=== PATIENT | male | born 1965 | race Caucasian/White ===

== ENCOUNTER 2016-07-08 14:23 | Inpatient (IN) | payer OTHER ==
[~2016-07-08] VITALS: Ht 190.5 cm; Wt 75.8 kg
[~2016-07-08 14:23] MED LIST: ALBU2SYR PO; ASPI-496 PO; DOXY100T9 PO; IBUP200C8 PO; IPRA3AMP NPPB; NO MEDS REPORTED; PHEN100C PO; PRED10TA PO
[2016-07-08] MEDS ORDERED: SODIUM CHLORIDE 0.9% 1,000 ML IV ONE (14:36)
[2016-07-08] MEDS ORDERED: ALBUTEROL/IPRATROPIUM 2.5MG/0.5MG, 3 ML ONE (14:39)
[2016-07-08] MEDS ORDERED: ALBUTEROL/IPRATROPIUM 2.5MG/0.5MG, 3 ML NPPB SCH (15:00)
[2016-07-08] MEDS ORDERED: SODIUM CHLORIDE FLUSH 10ML SYR IVF ONE (15:00)
[2016-07-08] MEDS ORDERED: SODIUM CHLORIDE 0.9% 1,000ML IVBOLUS ONE (15:00)
[2016-07-08] MEDS ORDERED: LORazepam 2 MG/ML, 1ML IVPush ONE ×3 (15:00→20:00)
[2016-07-08] MEDS ORDERED: methylPREDNISolone SOD SUCC 125 MG/2 ML IVP ONE (15:00)
[2016-07-08 15:17] LABS: BLOOD UREA NITROGEN 8 mg/dL (7-18)
[2016-07-08 15:18] LABS: IS PT STATUS REG ER OR PRE ER? YES
[2016-07-08] MEDS ORDERED: methylPREDNISolone SOD SUCC 125 MG/2 ML ONE (15:45)
[2016-07-08] MEDS ORDERED: LORazepam 2 MG/ML, 1ML ONE ×3 (15:46→19:37)
[2016-07-08] MEDS ORDERED: PHENYTOIN SODIUM 1,000 MG in SODIUM CHLORIDE 0.9% 100 ML IVPB ONE (16:00)
[2016-07-08 16:25] LABS: DIFF TOTAL CELLS COUNTED 100 CELL DIFF
[2016-07-08] MEDS ORDERED: FILTER 0.22 MICRON IV ONE (16:30)
[2016-07-08 16:37] LABS: VERIFY COUNTS? YES
[2016-07-08 16:40] LABS: LARGE PLATELETS 1+
[2016-07-08] MEDS ORDERED: DIAZEPAM 5 MG/ML, 2ML ONE (18:22)
[2016-07-08] MEDS ORDERED: DIAZEPAM 5 MG/ML, 2ML IV ONE (18:30)
[2016-07-08] MEDS ORDERED: SODIUM CHLORIDE FLUSH 10ML SYR IVF PRN (19:00)
[2016-07-08] MEDS ORDERED: POTASSIUM CHLORIDE 20 MEQ, MAGNESIUM SULFATE 1 GM, FOLIC ACID 1 MG, THIAMINE 100 MG, MV... IV SCH (19:30)
[2016-07-08] MEDS ORDERED: LORazepam 1MG TABLET PO PRN ×8 (19:30→20:30)
[2016-07-08] MEDS ORDERED: LORazepam 2 MG/ML, 1ML IV PRN ×10 (19:30→20:30)
[2016-07-08] MEDS ORDERED: ONDANSETRON ODT 4 MG PO PRN (19:30)
[2016-07-08] MEDS ORDERED: ENOXAPARIN 40 MG/0.4 ML SQ SCH (19:30)
[2016-07-08] MEDS ORDERED: POLYETHYLENE GLYCOL 17 GM PACKET PO PRN (19:30)
[2016-07-08] MEDS ORDERED: LABETALOL 5MG/ML, 20ML IV PRN (19:30)
[2016-07-08] MEDS ORDERED: LORazepam 0.5MG TABLET PO PRN ×2 (19:30→20:30)
[2016-07-08] MEDS ORDERED: GUAIFENESIN/DM 200-20MG, 10ML UDC PO PRN (19:30)
[2016-07-08] MEDS ORDERED: ONDANSETRON 2MG/ML, 2ML IVP PRN (19:30)
[2016-07-08] MEDS ORDERED: LEVETIRACETAM 1,000 MG in SODIUM CHLORIDE 0.9% 100 ML IV ONE (20:30)
[2016-07-08 20:38] LABS: ASPARTATE AMINO TRANSFERASE 88 U/L (15-37); BLOOD UREA NITROGEN 6 mg/dL (7-18)
[2016-07-08] MEDS: SODIUM CHLORIDE 0.9% 1,000 ML IV SCH (20:54)
[2016-07-08] MEDS ORDERED: PHENYTOIN SODIUM 50 MG/ML, 2ML IVPush SCH (21:00)
[2016-07-08] MEDS ORDERED: LEVETIRACETAM 100 MG/ML, 5ML IV SCH ×2 (21:00)
[2016-07-08] MEDS ORDERED: DOXYCYCLINE 100MG TABLET PO ONE (21:00)
[2016-07-08] MEDS: POTASSIUM CHLORIDE 20 MEQ, MAGNESIUM SULFATE 1 GM, FOLIC ACID 1 MG, THIAMINE 100 MG, MV... IV SCH (21:58)
[2016-07-08] MEDS: FAMOTIDINE 20 MG/2 ML IV SCH (21:59)
[2016-07-09] MEDS ORDERED: NICOTINE 14MG/24 HR PATCH.TD24 TD ONE (03:00)
[2016-07-09 04:00] VITALS: BP 118/69
[2016-07-09] MEDS ORDERED: ALBUTEROL/IPRATROPIUM 2.5MG/0.5MG, 3 ML NPPB PRN (04:00)
[2016-07-09 05:01] LABS: ASPARTATE AMINO TRANSFERASE 67 U/L (15-37); BLOOD UREA NITROGEN 12 mg/dL (7-18)
[2016-07-09] MEDS: SODIUM CHLORIDE 0.9% 1,000 ML IV SCH ×2 (07:57→22:53)
[2016-07-09] MEDS: LEVETIRACETAM 750 MG in SODIUM CHLORIDE 0.9% 100 ML IV SCH ×2 (08:53→22:53)
[2016-07-09] MEDS: ASPIRIN 81 MG TABLET EC PO SCH (08:59)
[2016-07-09] MEDS: FAMOTIDINE 20 MG/2 ML IV SCH ×2 (08:59→22:53)
[2016-07-09] MEDS ORDERED: predniSONE 50MG TABLET PO SCH (09:00)
[2016-07-09] MEDS: SENNA/DOCUSATE TABLET PO SCH (09:00)
[2016-07-09] MEDS ORDERED: LEVETIRACETAM 100 MG/ML, 5ML IV SCH (09:00)
[2016-07-09] MEDS ORDERED: DOXYCYCLINE 100MG TABLET PO SCH (09:00)
[2016-07-09] MEDS: CHLORDIAZEPOXIDE 25 MG CAPSULE PO SCH ×3 (10:30→22:52)
[2016-07-09 16:28] LABS: DAU SCREEN DISCLAIMER
[2016-07-09 20:47] VITALS: BP 119/70
[2016-07-09] MEDS: POTASSIUM CHLORIDE 20 MEQ, MAGNESIUM SULFATE 1 GM, FOLIC ACID 1 MG, THIAMINE 100 MG, MV... IV SCH (22:53)
[2016-07-10 00:17] VITALS: BP 105/61
[2016-07-10 05:29] LABS: BLOOD UREA NITROGEN 17 mg/dL (7-18)
[2016-07-10 05:32] LABS: ASPARTATE AMINO TRANSFERASE 37 U/L (15-37)
[2016-07-10 07:46] VITALS: BP 129/85
[2016-07-10] MEDS ORDERED: LORazepam 2 MG/ML, 1ML IVPush PRN (08:00)
[2016-07-10] MEDS: SENNA/DOCUSATE TABLET PO SCH (09:00)
[2016-07-10] MEDS: ASPIRIN 81 MG TABLET EC PO SCH (09:29)
[2016-07-10] MEDS: CHLORDIAZEPOXIDE 25 MG CAPSULE PO SCH ×3 (09:29→21:25)
[2016-07-10] MEDS ORDERED: PIPERONYL BUTOXIDE/PYRETHRINS SHAMPOO TP SCH (10:30)
[2016-07-10] MEDS: LEVETIRACETAM 750 MG in SODIUM CHLORIDE 0.9% 100 ML IV SCH ×2 (10:30→21:27)
[2016-07-10 12:27] VITALS: BP 111/74
[2016-07-10 21:20] VITALS: BP 133/87
[2016-07-10] MEDS: SODIUM CHLORIDE 0.9% 1,000 ML IV SCH (21:25)
[2016-07-10] MEDS: HYDROcodone/APAP 5/325 TABLET PO PRN (21:25)
[2016-07-11 01:22] VITALS: BP 125/86
[2016-07-11] MEDS ORDERED: LORazepam 2 MG/ML, 1ML IVPush ONE (01:30)
[2016-07-11] MEDS: HYDROcodone/APAP 5/325 TABLET PO PRN (04:07)
[2016-07-11 09:02] VITALS: BP 126/82
[2016-07-11] MEDS: ASPIRIN 81 MG TABLET EC PO SCH (10:20)
[2016-07-11] MEDS: LEVETIRACETAM 750 MG in SODIUM CHLORIDE 0.9% 100 ML IV SCH (10:20)
[2016-07-11] MEDS: SENNA/DOCUSATE TABLET PO SCH (10:20)
[2016-07-11] MEDS: CHLORDIAZEPOXIDE 25 MG CAPSULE PO SCH (10:20)
[2016-07-11] MEDS ORDERED: PHENYTOIN 100 MG CAPSULE PO SCH (16:00)
== END 2016-07-11 15:44 | disposition left against medical advice (07) | DRG 100 ==
LOC: ED 17:08 → EDIP 18:56 → CCU 21:06 → 4EST 07-09 20:38
PROVIDERS: ADMIT Internal Medicine; ATTEND Family Medicine
DX: G40.909 Epilepsy, unspecified, not intractable, without status epilepticus (principal); G93.49 Other encephalopathy; J44.1 Chronic obstructive pulmonary disease with (acute) exacerbation; K51.90 Ulcerative colitis, unspecified, without complications; D72.829 Elevated white blood cell count, unspecified; D69.59 Other secondary thrombocytopenia; Y90.0 Blood alcohol level of less than 20 mg/100 ml; B85.2 Pediculosis, unspecified; F10.129 Alcohol abuse with intoxication, unspecified; J32.9 Chronic sinusitis, unspecified; K76.0 Fatty (change of) liver, not elsewhere classified; Z86.73 Personal history of transient ischemic attack (TIA), and cerebral infarction without residual deficits; Z87.891 Personal history of nicotine dependence; Z91.19 Patient's noncompliance with other medical treatment and regimen; Z79.82 Long term (current) use of aspirin; Z88.6 Allergy status to analgesic agent; Z91.048 Other nonmedicinal substance allergy status
CPT/HCPCS: 36415; 70450; 71010; 80048; 80053; 80061; 80185; 80307; 81003; 82040; 82550; 83690; 83735; 84100; 84146; 84439; 84484; 85025; 85610; 87040; 87081; 93005; 94640; 96361; 96365; 96366; 96375; J1165; J1953; J3360; J3411; J3475; J3480; J7042; J7620; J2060; J2930; J7030; J7512; S0028

== ENCOUNTER 2016-09-01 17:45 | Inpatient (IN) | payer OTHER ==
[~2016-09-01] VITALS: Ht 193 cm; Wt 74.5 kg
[2016-09-01] MEDS ORDERED: SODIUM CHLORIDE 0.9% 1,000ML IVBOLUS ONE (18:30)
[2016-09-01] MEDS ORDERED: MORPHINE SULFATE 4 MG/ML, 1ML IVPush ONE (18:30)
[2016-09-01] MEDS ORDERED: ONDANSETRON 2MG/ML, 2ML IVPush ONE (18:30)
[2016-09-01] MEDS ORDERED: SODIUM CHLORIDE FLUSH 10ML SYR IVF ONE (18:30)
[2016-09-01] MEDS ORDERED: ONDANSETRON 2MG/ML, 2ML ONE (18:40)
[2016-09-01] MEDS ORDERED: MORPHINE SULFATE 4 MG/ML, 1ML ONE (18:40)
[2016-09-01 19:02] LABS: ASPARTATE AMINO TRANSFERASE 57 U/L (15-37); BLOOD UREA NITROGEN 21 mg/dL (7-18)
[2016-09-01] MEDS ORDERED: LEVE500T53 PO (20:37)
[2016-09-02] MEDS ORDERED: PROMETHAZINE 25 MG/ML, 1ML IM PRN
[2016-09-02] MEDS: OXYcodone IR 5MG TABLET PO PRN ×4 (00:22→22:03)
[2016-09-02 00:38] VITALS: BP 122/92
[2016-09-02] MEDS ORDERED: OMNIPAQUE 350 MG/ML, 100ML BOTTLE ONE (01:05)
[2016-09-02 01:52] LABS: HIV 1&2 ANTIBODY SCREEN Nonreactive (Nonreactive); HIV-1 p24 ANTIGEN Nonreactive (Nonreactive)
[2016-09-02 02:23] LABS: HEPATITIS C VIRUS ANTIBODY Reactive (Nonreactive)
[2016-09-02 02:54] VITALS: BP 104/64
[2016-09-02 05:49] LABS: BLOOD UREA NITROGEN 19 mg/dL (7-18)
[2016-09-02 05:55] LABS: ASPARTATE AMINO TRANSFERASE 50 U/L (15-37)
[2016-09-02] MEDS: LEVETIRACETAM 500 MG TABLET PO SCH ×2 (10:16→20:40)
[2016-09-02] MEDS ORDERED: BISACODYL 10 MG SUPP PR PRN (13:00)
[2016-09-02] MEDS ORDERED: DOCUSATE 100 MG CAPSULE PO PRN (13:00)
[2016-09-02] MEDS: ONDANSETRON 2MG/ML, 2ML IVPush PRN (14:18)
[2016-09-02 14:57] VITALS: BP 101/64
[2016-09-02 19:55] VITALS: BP 108/56
[2016-09-03 03:41] VITALS: BP 110/77
[2016-09-03 07:03] VITALS: BP 103/66
[2016-09-03] MEDS: LEVETIRACETAM 500 MG TABLET PO SCH ×2 (08:07→19:43)
[2016-09-03] MEDS: MORPHINE SULFATE 4 MG/ML, 1ML IVPush PRN (08:52)
[2016-09-03] MEDS ORDERED: MIDAZOLAM 1 MG/ML, 5ML ONE (10:44)
[2016-09-03] MEDS ORDERED: NALOXONE 1 MG/ML, 2ML ONE (10:44)
[2016-09-03] MEDS ORDERED: FENTANYL PF 100 MCG/2ML ONE (10:44)
[2016-09-03] MEDS ORDERED: FLUMAZENIL 0.1 MG/1 ML, 5ML ONE (10:45)
[2016-09-03] MEDS ORDERED: LIDOCAINE 2%, 20ML ONE (10:47)
[2016-09-03 12:59] VITALS: BP 76/48
[2016-09-03 13:13] VITALS: BP 100/74
[2016-09-03] MEDS: OXYcodone IR 5MG TABLET PO PRN ×2 (13:46→19:43)
[2016-09-03] MEDS: POLYETHYLENE GLYCOL 17 GM PACKET PO PRN (19:44)
[2016-09-03 20:00] VITALS: BP 108/69
[2016-09-04] MEDS: OXYcodone IR 5MG TABLET PO PRN ×4 (02:14→21:43)
[2016-09-04 02:24] VITALS: BP 99/64
[2016-09-04 07:36] VITALS: BP 111/75
[2016-09-04] MEDS: LEVETIRACETAM 500 MG TABLET PO SCH ×2 (09:08→21:43)
[2016-09-04 13:35] VITALS: BP 102/61
[2016-09-04] MEDS ORDERED: ACETAMINOPHEN 325 MG TABLET PO ONE (17:30)
[2016-09-04] MEDS ORDERED: DIPHENHYDRAMINE 25 MG CAPSULE PO ONE (18:00)
[2016-09-04 18:25] VITALS: BP 110/73
[2016-09-04] MEDS ORDERED: IMMUNE GLOBULIN IVPB ONE (18:30)
[2016-09-04] MEDS ORDERED: EVACUATED CONTAINER IVPB ONE (18:30)
[2016-09-04 18:36] VITALS: BP 112/76
[2016-09-04 19:14] VITALS: BP 113/79
[2016-09-04] MEDS: ONDANSETRON 2MG/ML, 2ML IVPush PRN (19:29)
[2016-09-04] MEDS ORDERED: DIPHENHYDRAMINE 50 MG/ML, 1ML ONE (19:51)
[2016-09-04] MEDS ORDERED: DIPHENHYDRAMINE 50 MG/ML, 1ML IVPush PRN (20:00)
[2016-09-04 20:25] LABS: ASPARTATE AMINO TRANSFERASE 57 U/L (15-37); BLOOD UREA NITROGEN 17 mg/dL (7-18)
[2016-09-04] MEDS: MORPHINE SULFATE 4 MG/ML, 1ML IVPush PRN (21:02)
[2016-09-05 02:51] VITALS: BP 108/66
[2016-09-05] MEDS: OXYcodone IR 5MG TABLET PO PRN ×4 (03:13→22:49)
[2016-09-05 07:20] VITALS: BP 101/66
[2016-09-05] MEDS: LEVETIRACETAM 500 MG TABLET PO SCH ×2 (09:07→21:12)
[2016-09-05] MEDS: POLYETHYLENE GLYCOL 17 GM PACKET PO PRN (09:21)
[2016-09-05 13:00] VITALS: BP 102/62
[2016-09-05 20:02] VITALS: BP 105/67
[2016-09-06 04:52] VITALS: BP 106/66
[2016-09-06] MEDS: OXYcodone IR 5MG TABLET PO PRN ×3 (05:28→18:45)
[2016-09-06 06:26] LABS: ASPARTATE AMINO TRANSFERASE 44 U/L (15-37); BLOOD UREA NITROGEN 20 mg/dL (7-18)
[2016-09-06 08:30] VITALS: BP 105/67
[2016-09-06] MEDS: LEVETIRACETAM 500 MG TABLET PO SCH ×2 (08:53→20:14)
[2016-09-06] MEDS: POLYETHYLENE GLYCOL 17 GM PACKET PO PRN (08:56)
[2016-09-06 14:30] VITALS: BP 101/60
[2016-09-06] MEDS: ONDANSETRON 2MG/ML, 2ML IVPush PRN (16:35)
[2016-09-06 18:34] VITALS: BP 107/65
[2016-09-07 00:03] VITALS: BP 118/75
[2016-09-07] MEDS: OXYcodone IR 5MG TABLET PO PRN ×4 (00:24→19:57)
[2016-09-07] MEDS: LEVETIRACETAM 500 MG TABLET PO SCH ×2 (08:58→21:51)
[2016-09-07 09:05] VITALS: BP 103/65
[2016-09-07 11:07] LABS: HCV LOG10 5.648 (.); HEPATITIS C PCR QUANTITATION 445000 IU/mL (.)
[2016-09-07 14:05] VITALS: BP 122/80
[2016-09-07] MEDS: POLYETHYLENE GLYCOL 17 GM PACKET PO PRN (14:14)
[2016-09-07 16:07] LABS: HLA CLASS I ANTIBODY Negative (Negative); IIb/IIIa ANTIBODY Positive (Negative); Ia/IIa ANTIBODY Positive (Negative)
[2016-09-07 20:55] VITALS: BP 129/79
[2016-09-08 02:40] VITALS: BP 136/77
[2016-09-08] MEDS: OXYcodone IR 5MG TABLET PO PRN ×4 (02:49→23:35)
[2016-09-08 07:30] VITALS: BP 133/78
[2016-09-08] MEDS: LEVETIRACETAM 500 MG TABLET PO SCH ×2 (09:06→20:40)
[2016-09-08 14:00] VITALS: BP 117/82
[2016-09-08 18:51] VITALS: BP 128/82
[2016-09-09 01:26] VITALS: BP 114/83
[2016-09-09] MEDS: OXYcodone IR 5MG TABLET PO PRN ×2 (05:30→11:40)
[2016-09-09 05:50] LABS: ASPARTATE AMINO TRANSFERASE 30 U/L (15-37); BLOOD UREA NITROGEN 14 mg/dL (7-18)
[2016-09-09 07:40] VITALS: BP 111/65
[2016-09-09] MEDS: LEVETIRACETAM 500 MG TABLET PO SCH (08:01)
[2016-09-09] MEDS ORDERED: PRED20TA PO (09:36)
[2016-09-09 15:58] VITALS: BP 126/85
== END 2016-09-09 17:00 | disposition home or self-care (01) | DRG 442 ==
LOC: ED 18:39 → EDIP 22:53 → 4NOR 23:49
PROVIDERS: ADMIT Internal Medicine; ATTEND Internal Medicine
PROC: 07DR3ZX Extraction of Iliac Bone Marrow, Percutaneous Approach, Diagnostic (ICD-10-PCS; principal; 2016-09-03)
DX: B18.2 Chronic viral hepatitis C (principal); D69.3 Immune thrombocytopenic purpura; J44.9 Chronic obstructive pulmonary disease, unspecified; G40.909 Epilepsy, unspecified, not intractable, without status epilepticus; G89.29 Other chronic pain; D69.59 Other secondary thrombocytopenia; K74.60 Unspecified cirrhosis of liver; K70.9 Alcoholic liver disease, unspecified; T38.0X5A Adverse effect of glucocorticoids and synthetic analogues, initial encounter; R73.9 Hyperglycemia, unspecified; D72.829 Elevated white blood cell count, unspecified; F17.200 Nicotine dependence, unspecified, uncomplicated; F10.20 Alcohol dependence, uncomplicated; E83.119 Hemochromatosis, unspecified; Z86.73 Personal history of transient ischemic attack (TIA), and cerebral infarction without residual deficits; Z88.6 Allergy status to analgesic agent; Z91.048 Other nonmedicinal substance allergy status; Z65.3 Problems related to other legal circumstances
CPT/HCPCS: 36415; 70450; 71010; 74177; 76700; 77012; 80053; 80074; 81003; 82542; 82607; 82728; 82746; 83540; 83550; 83690; 83735; 84100; 85025; 85097; 85610; 85651; 85730; 86022; 86038; 86703; 87521; 87522; 87899; 87900; 87912; 88237; 88264; 88280; 88305; 88311; 88313; 93005; 96361; 96374; 96375; 99156; 99157; G0364; J1459; J2250; J2405; J3010; J3490; Q9967; G0435; J1200; J2310; J7030; J7512; Q0163

== ENCOUNTER 2016-09-23 20:33 | Emergency (ER) | payer OTHER ==
[~2016-09-23] VITALS: Ht 177.8 cm; Wt 86.0 kg
[~2016-09-23 20:33] MED LIST changes: +LEVE500T53 PO; +PRED20TA PO
[2016-09-23 20:39] VITALS: BP 144/92
[2016-09-23] MEDS ORDERED: ONDANSETRON 2MG/ML, 2ML IVPush ONE (21:00)
[2016-09-23] MEDS ORDERED: SODIUM CHLORIDE 0.9% 1,000ML IVBOLUS ONE (21:00)
[2016-09-23] MEDS ORDERED: SODIUM CHLORIDE FLUSH 10ML SYR IVF ONE (21:00)
[2016-09-23 21:11] LABS: ASPARTATE AMINO TRANSFERASE 46 U/L (15-37); BLOOD UREA NITROGEN 18 mg/dL (7-18)
[2016-09-23] MEDS ORDERED: ONDANSETRON 2MG/ML, 2ML ONE (21:19)
[2016-09-23 21:20] LABS: DIFF TOTAL CELLS COUNTED 100 CELL DIFF
[2016-09-23 21:25] LABS: LARGE PLATELETS 1+; VERIFY COUNTS? YES
== END 2016-09-23 22:11 | disposition home or self-care (01) ==
LOC: ED 21:02
DX: R10.11 Right upper quadrant pain (principal); R11.2 Nausea with vomiting, unspecified
CPT/HCPCS: 36415; 76700; 80053; 83690; 85025; 96374; 99285; J2405; J7030

== ENCOUNTER 2016-11-13 11:41 | Emergency (ER) | payer OTHER, MEDICARE ==
[~2016-11-13] VITALS: Ht 193 cm; Wt 78.0 kg
[~2016-11-13 11:41] MED LIST changes: +CHOL200024 PO; +IPRA3AMP NEB; +LEVE500T8 PO; +THIA100T10 PO
[2016-11-13] MEDS ORDERED: SODIUM CHLORIDE FLUSH 10ML SYR IVF ONE (12:00)
[2016-11-13 12:27] LABS: ASPARTATE AMINO TRANSFERASE 134 U/L (15-37); BLOOD UREA NITROGEN 15 mg/dL (7-18)
[2016-11-13] MEDS ORDERED: SODIUM CHLORIDE 0.9% 1,000ML IVBOLUS ONE (12:30)
[2016-11-13] MEDS ORDERED: ONDANSETRON 2MG/ML, 2ML IVPush ONE (12:30)
[2016-11-13] MEDS ORDERED: ONDANSETRON 2MG/ML, 2ML ONE (12:33)
[2016-11-13 12:40] LABS: HEMATOCRIT 44.3 % (39.2-51.8); WHITE BLOOD COUNT 6.3 x10^3/uL (3.4-10)
[2016-11-13 13:41] VITALS: BP 129/92
== END 2016-11-13 14:17 | disposition home or self-care (01) ==
LOC: ED 12:40
DX: G40.319 Generalized idiopathic epilepsy and epileptic syndromes, intractable, without status epilepticus (principal); D69.3 Immune thrombocytopenic purpura; J44.9 Chronic obstructive pulmonary disease, unspecified; K76.9 Liver disease, unspecified; Z87.891 Personal history of nicotine dependence
CPT/HCPCS: 36415; 80053; 80177; 81003; 82140; 83605; 85025; 85610; 85730; 93005; 96361; 96374; 99285; J2405; J7030

== ENCOUNTER 2018-09-02 16:21 | Emergency (ER) | payer MEDICAID, MEDICARE, OTHER ==
[~2018-09-02] VITALS: Ht 193 cm; Wt 83.0 kg
[~2018-09-02 16:21] MED LIST changes: -ALBU2SYR PO; +ALBU2SYR3 PO; -IPRA3AMP NEB; -IPRA3AMP NPPB; +IPRA3AMP30 NEB; +IPRA3AMP30 NPPB
[2018-09-02 16:55] VITALS: BP 144/102
[2018-09-02 17:35] LABS: ANION GAP 10 mmol/L (5-15); CALCIUM 9.1 mg/dL (8.5-10.1); CHLORIDE 105 mmol/L (98-107); CREATININE 0.93 mg/dL (0.7-1.3)
[2018-09-02 17:51] LABS: BASOPHILS # (AUTO) 0.09 x10^3/uL (0-0.1); BASOPHILS % (AUTO) 1 % (0-1); EOSINOPHILS # (AUTO) 0.19 x10^3/uL (0-0.4); EOSINOPHILS % (AUTO) 3 % (1-7); LYMPHOCYTES # (AUTO) 1.53 x10^3/uL (1-3.4); LYMPHOCYTES % (AUTO) 20 % (22-44); MD NO; MEAN CORPUSCULAR HEMOGLOBIN 35.3 pg (27.5-34.5); MEAN CORPUSCULAR HGB CONC 34.3 g/dL (33.2-36.2); MEAN CORPUSCULAR VOLUME 103.2 fL (81-97); MEAN PLATELET VOLUME 9.8 fL (7.4-10.4); MONOCYTES # (AUTO) 1.11 x10^3/uL (0.2-0.8); MONOCYTES % (AUTO) 15 % (2-9); NEUTROPHILS # (AUTO) 4.74 x10^3/uL (1.8-6.8); NEUTROPHILS % (AUTO) 62 % (42-75); PLATELET COUNT 105 x10^3/uL (130-400); RED BLOOD COUNT 4.75 x10^6/uL (4.38-5.82); RED CELL DISTRIBUTION WIDTH 17.8 % (9.4-14.8)
== END 2018-09-02 18:04 | disposition home or self-care (01) ==
LOC: ED 17:58
DX: L03.116 Cellulitis of left lower limb (principal); B85.0 Pediculosis due to Pediculus humanus capitis; I10 Essential (primary) hypertension; J44.9 Chronic obstructive pulmonary disease, unspecified; F17.200 Nicotine dependence, unspecified, uncomplicated; Z86.73 Personal history of transient ischemic attack (TIA), and cerebral infarction without residual deficits; Z88.5 Allergy status to narcotic agent; Z88.8 Allergy status to other drugs, medicaments and biological substances; W57.XXXA Bitten or stung by nonvenomous insect and other nonvenomous arthropods, initial encounter; Y93.89 Activity, other specified; Y92.89 Other specified places as the place of occurrence of the external cause; Y99.8 Other external cause status
CPT/HCPCS: 36415; 80048; 82040; 85025; 99284

== ENCOUNTER 2019-01-22 12:59 | Emergency (ER) | payer MEDICARE, MEDICAID ==
[~2019-01-22] VITALS: Ht 190.5 cm; Wt 78.3 kg
[~2019-01-22 12:59] MED LIST changes: +DOXY-162 PO; -DOXY100T9 PO
[2019-01-22 13:02] VITALS: BP 149/97
--- NOTE | 2019-01-22 14:06 | NUR ---
insurance marketing specialist: no answer from lobby at this time
--- NOTE | 2019-01-22 14:31 | NUR ---
bioinformatics technician: no answer from lobby at this time
--- NOTE | 2019-01-22 15:39 | NUR ---
chemical research worker: Pt not in lobby at this time
== END 2019-01-22 15:41 | disposition left against medical advice (07) ==
LOC: ED 15:35
DX: R51 Headache (principal); Z53.21 Procedure and treatment not carried out due to patient leaving prior to being seen by health care provider

== ENCOUNTER 2019-05-02 14:22 | Emergency (ER) | payer MEDICAID, MEDICARE ==
[~2019-05-02] VITALS: Ht 193 cm; Wt 78.1 kg
[2019-05-02 14:35] VITALS: BP 141/92
[2019-05-02] MEDS ORDERED: KETOROLAC 30 MG/1 ML ONE (14:59)
[2019-05-02] MEDS ORDERED: KETOROLAC 30 MG/1 ML IM ONE (15:00)
--- NOTE | 2019-05-02 15:44 | NUR ---
toradol per may pt to xr. as
== END 2019-05-02 16:10 | disposition home or self-care (01) ==
LOC: ED 16:00
DX: S83.91XA Sprain of unspecified site of right knee, initial encounter (principal); W18.39XA Other fall on same level, initial encounter; Y93.89 Activity, other specified; Y92.89 Other specified places as the place of occurrence of the external cause; Y99.8 Other external cause status
CPT/HCPCS: 73564; 73590; 96372; 99284; J1885

== ENCOUNTER 2019-06-01 20:45 | Emergency (ER) | payer OTHER ==
[2019-06-01 20:54] VITALS: BP 115/84
--- NOTE | 2019-06-01 20:55 | NUR ---
Ccollar applied in triage. Shortly after, pt began shaking violently and thrashing around bed. Pt responded to sternal rub by yelling "what the fuck" and elbowing nurse. Pt continued to thrash around bed. Pt spit on floor, never lost control of bowel or bladder. No postictal state noted. Seizure pads applied to bed as a precaution.
[2019-06-01] MEDS ORDERED: DIPH,PERTUSS(ACELL),TET VAC/PF 0.5 ML IM-VACC ONE ×2 (21:00→21:04)
[2019-06-01] MEDS ORDERED: AMOXICILLIN/CLAV 875-125MG TABLET PO ONE (21:00)
[2019-06-01] MEDS ORDERED: LIDOCAINE 1%-EPI 1:100K, 20ML INFIL ONE (21:00)
--- NOTE | 2019-06-01 21:00 | NUR ---
RPD in room with patient
[2019-06-01] MEDS ORDERED: AMOXICILLIN/CLAV 875-125MG TABLET ONE (21:03)
[2019-06-01] MEDS ORDERED: LIDOCAINE-MPF 1%, 5ML ONE (21:03)
[2019-06-01] MEDS ORDERED: PLEASE ENTER HEIGHT AND WEIGHT MC SCH (21:30)
== END 2019-06-01 22:51 | disposition home or self-care (01) ==
LOC: ED 20:55
DX: S71.151A Open bite, right thigh, initial encounter (principal); S01.119A Laceration without foreign body of unspecified eyelid and periocular area, initial encounter; I10 Essential (primary) hypertension; W54.0XXA Bitten by dog, initial encounter; Y93.89 Activity, other specified; Y92.89 Other specified places as the place of occurrence of the external cause; Y99.8 Other external cause status
CPT/HCPCS: 12032; 12051; 70450; 72125; 73552; 90471; 90715; 99285; J3490

== ENCOUNTER 2019-06-10 09:26 | Emergency (ER) | payer MEDICARE, MEDICAID ==
[~2019-06-10] VITALS: Ht 193 cm; Wt 79.2 kg
[2019-06-10 09:31] VITALS: BP 108/78
--- NOTE | 2019-06-10 10:22 | NUR ---
SALINE SOAKED GAUZE APPLIED TO AREAS OF SUTURES TO LOOSEN CRUST. PT TAKEN TO XRAY.
--- NOTE | 2019-06-10 10:35 | NUR ---
3 SUTURES REMOVED FROM RIGHT THIGH, 4 FROM LEFT EYEBROW. PATIENT TOLERATED WELL. NO OTHER SUTURES NOTED. EDGES WELL APPROXIMATED, NO S/S OF INFECTION NOTED. CALL LIGHT IN REACH.
== END 2019-06-10 12:16 | disposition home or self-care (01) ==
LOC: ED 09:54
DX: S62.002A Unspecified fracture of navicular [scaphoid] bone of left wrist, initial encounter for closed fracture (principal); J44.9 Chronic obstructive pulmonary disease, unspecified; G40.909 Epilepsy, unspecified, not intractable, without status epilepticus; F17.200 Nicotine dependence, unspecified, uncomplicated; Z86.73 Personal history of transient ischemic attack (TIA), and cerebral infarction without residual deficits; W01.0XXA Fall on same level from slipping, tripping and stumbling without subsequent striking against object, initial encounter; Y93.01 Activity, walking, marching and hiking; Y92.488 Other paved roadways as the place of occurrence of the external cause; Y99.8 Other external cause status
CPT/HCPCS: 29125; 99284

== ENCOUNTER 2019-06-10 19:30 | Emergency (ER) | payer MEDICAID, MEDICARE ==
[~2019-06-10] VITALS: Ht 193 cm; Wt 82.0 kg
[2019-06-10 19:41] VITALS: BP 155/88
[2019-06-10] MEDS ORDERED: HYDROcodone/APAP 10/325 MG TABLET PO ONE (20:00)
[2019-06-10] MEDS ORDERED: HYDROcodone/APAP 10/325 MG TABLET ONE (20:46)
--- NOTE | 2019-06-10 20:48 | NUR ---
PT HERE FOR RESPLINT OF ARM. PT REPORTS SEVERE PAIN. PT MEDICATED PER EMAR AND NEW SPLINT APPLIED TO PT.
--- NOTE | 2019-06-10 20:49 | NUR ---
Patient/Caregiver given discharge instructions and they have confirmed that they understand the instructions. Patient ambulatory with steady gait.
== END 2019-06-10 20:51 | disposition home or self-care (01) ==
LOC: ED 20:30
DX: M25.532 Pain in left wrist (principal); I10 Essential (primary) hypertension; J44.9 Chronic obstructive pulmonary disease, unspecified; G40.909 Epilepsy, unspecified, not intractable, without status epilepticus; F17.200 Nicotine dependence, unspecified, uncomplicated; Z86.73 Personal history of transient ischemic attack (TIA), and cerebral infarction without residual deficits
CPT/HCPCS: 29125; 99283

== ENCOUNTER 2019-07-08 22:22 | Emergency (ER) | payer MEDICAID, MEDICARE ==
[~2019-07-08] VITALS: Ht 193 cm; Wt 79.1 kg
[2019-07-08 22:25] VITALS: BP 103/69
--- NOTE | 2019-07-08 22:37 | NUR ---
ASSESSMENT MADE. ERP AT BEDSIDE.
--- NOTE | 2019-07-08 22:47 | NUR ---
splint and felicia wrap removed.
--- NOTE | 2019-07-08 23:05 | NUR ---
back from x ray. awaiting result
[2019-07-09] MEDS ORDERED: ACETAMINOPHEN 500 MG TABLET PO ONE
[2019-07-09] MEDS ORDERED: IBUPROFEN 200 MG TABLET PO ONE
--- NOTE | 2019-07-09 00:26 | NUR ---
CMS INTACT AFTER CAST APPLICATION ON LUE
== END 2019-07-09 00:28 | disposition home or self-care (01) ==
LOC: ED 23:52
DX: S52.022A Displaced fracture of olecranon process without intraarticular extension of left ulna, initial encounter for closed fracture (principal); S92.252A Displaced fracture of navicular [scaphoid] of left foot, initial encounter for closed fracture; F17.200 Nicotine dependence, unspecified, uncomplicated; W01.0XXA Fall on same level from slipping, tripping and stumbling without subsequent striking against object, initial encounter; Y93.89 Activity, other specified; Y92.488 Other paved roadways as the place of occurrence of the external cause; Y99.8 Other external cause status
CPT/HCPCS: 29105; 29125; 99284

== ENCOUNTER 2019-07-09 13:38 | Emergency (ER) | payer MEDICAID ==
[~2019-07-09] VITALS: Ht 193 cm; Wt 77.5 kg
--- NOTE | 2019-07-09 14:02 | NUR ---
PT AMBULATED BACK TO ROOM, RESTING ON [place], NAD, DENIES ADDITIONAL NEEDS AT THIS TIME, CALL LIGHT WITHIN REACH, NAD, P/W/D, SPEAKING IN FCS NO SOB NOTED. WCTM.
--- NOTE | 2019-07-09 14:25 | NUR ---
pt resting in gurney, NAD, P/W/D, RESP WNL, VSS, speaking FCS no SOB noted. WCTM.
[2019-07-09 14:58] VITALS: BP 115/72
--- NOTE | 2019-07-09 14:59 | NUR ---
Patient given discharge instructions and they have confirmed that they understand the instructions. Patient ambulatory with steady gait. Denies additional questions at this time.
== END 2019-07-09 15:01 | disposition home or self-care (01) ==
LOC: ED 14:00
DX: S62.002D Unspecified fracture of navicular [scaphoid] bone of left wrist, subsequent encounter for fracture with routine healing (principal); Z00.00 Encounter for general adult medical examination without abnormal findings; X58.XXXD Exposure to other specified factors, subsequent encounter
CPT/HCPCS: 99281

== ENCOUNTER 2019-08-06 15:05 | Emergency (ER) | payer MEDICARE, MEDICAID ==
[~2019-08-06] VITALS: Ht 193 cm; Wt 78.8 kg
[2019-08-06 15:15] VITALS: BP 117/85
[2019-08-06] MEDS ORDERED: IBUPROFEN 200 MG TABLET ONE (16:16)
--- NOTE | 2019-08-06 16:29 | NUR ---
PT BACK FROM XRAY. MEDS ADMIN PER MAY.
[2019-08-06] MEDS ORDERED: IBUPROFEN 200 MG TABLET PO ONE (16:30)
--- NOTE | 2019-08-06 16:43 | NUR ---
ALL RESULTS ARE BACK AT THIS TIME. CHART UP FOR RECHECK.
--- NOTE | 2019-08-06 17:05 | NUR ---
ARM SLING PLACED PER MD INTRUCTIONS. NO WRAPPING NEEDED AT THIS TIME. TASK RN WITH DC PAPERS.
== END 2019-08-06 17:14 | disposition home or self-care (01) ==
LOC: ED 16:50
DX: S52.022A Displaced fracture of olecranon process without intraarticular extension of left ulna, initial encounter for closed fracture (principal); S40.012A Contusion of left shoulder, initial encounter; S50.12XA Contusion of left forearm, initial encounter; R07.89 Other chest pain; Z72.9 Problem related to lifestyle, unspecified; I10 Essential (primary) hypertension; W01.0XXA Fall on same level from slipping, tripping and stumbling without subsequent striking against object, initial encounter; Y93.89 Activity, other specified; Y92.410 Unspecified street and highway as the place of occurrence of the external cause; Y99.8 Other external cause status
CPT/HCPCS: 71045; 99284

== ENCOUNTER 2019-09-04 00:59 | Emergency (ER) | payer MEDICAID, MEDICARE ==
[~2019-09-04] VITALS: Ht 190.5 cm; Wt 78.0 kg
--- NOTE | 2019-09-04 03:15 | NUR ---
REPORT TO WIDL VELASCO
--- NOTE | 2019-09-04 03:16 | NUR ---
received report from WILD Cruz
--- NOTE | 2019-09-04 03:58 | NUR ---
fiber optics technician at bedside for sling placement.
--- NOTE | 2019-09-04 04:05 | NUR ---
patient discharged with instruction. verbalized understanding.
[2019-09-04 04:07] VITALS: BP 119/78
== END 2019-09-04 04:09 | disposition home or self-care (01) ==
LOC: ED 02:18
DX: S42.032A Displaced fracture of lateral end of left clavicle, initial encounter for closed fracture (principal); S42.402A Unspecified fracture of lower end of left humerus, initial encounter for closed fracture; I10 Essential (primary) hypertension; J44.9 Chronic obstructive pulmonary disease, unspecified; G40.909 Epilepsy, unspecified, not intractable, without status epilepticus; Z86.73 Personal history of transient ischemic attack (TIA), and cerebral infarction without residual deficits; Z87.891 Personal history of nicotine dependence; Z72.9 Problem related to lifestyle, unspecified; X58.XXXA Exposure to other specified factors, initial encounter; Y93.89 Activity, other specified; Y92.89 Other specified places as the place of occurrence of the external cause; Y99.8 Other external cause status
CPT/HCPCS: 99284

== ENCOUNTER 2019-09-06 08:29 | Emergency (ER) | payer MEDICAID, MEDICARE ==
[~2019-09-06] VITALS: Ht 193 cm; Wt 54.0 kg
[2019-09-06 08:40] VITALS: BP 136/91
--- NOTE | 2019-09-06 09:26 | NUR ---
APPLIER: PT AMBULATORY TO ROOM FROM LOBBY
[2019-09-06] MEDS ORDERED: OXYcodone/APAP 5/325MG TABLET PO ONE (09:30)
[2019-09-06] MEDS ORDERED: OXYcodone/APAP 5/325MG TABLET ONE (09:52)
== END 2019-09-06 10:38 | disposition home or self-care (01) ==
LOC: ED 09:39
DX: R06.00 Dyspnea, unspecified (principal); R07.89 Other chest pain; I10 Essential (primary) hypertension; J44.9 Chronic obstructive pulmonary disease, unspecified; Z86.73 Personal history of transient ischemic attack (TIA), and cerebral infarction without residual deficits; Z87.891 Personal history of nicotine dependence
CPT/HCPCS: 99283

== ENCOUNTER 2019-10-22 16:41 | Emergency (ER) | payer MEDICAID ==
[~2019-10-22] VITALS: Ht 193 cm; Wt 72.7 kg
--- NOTE | 2019-10-22 18:52 | NUR ---
pt BIB [facility] after found lying in the street wiht c/o lower extremity pain. pt resting on gurney, appears comfortable, call light on lap, waiting for lab results. NAD. Moves all extremities, no deformities noted, WCTM.
[2019-10-22 18:58] LABS: ANION GAP 8 mmol/L (5-15); CALCIUM 8.6 mg/dL (8.5-10.1); CHLORIDE 111 mmol/L (98-107); CREATININE 0.67 mg/dL (0.7-1.3)
[2019-10-22 19:15] VITALS: BP 106/64
== END 2019-10-22 20:30 | disposition home or self-care (01) ==
LOC: ED 20:24
DX: F10.129 Alcohol abuse with intoxication, unspecified (principal); M79.604 Pain in right leg; I10 Essential (primary) hypertension; J44.9 Chronic obstructive pulmonary disease, unspecified; G40.909 Epilepsy, unspecified, not intractable, without status epilepticus; Z86.73 Personal history of transient ischemic attack (TIA), and cerebral infarction without residual deficits; Y90.0 Blood alcohol level of less than 20 mg/100 ml
CPT/HCPCS: 36415; 80048; 80307; 99283

== ENCOUNTER 2020-06-11 00:17 | Emergency (ER) | payer MEDICARE, MEDICAID ==
[~2020-06-11 00:17] MED LIST changes: +AMOX1TAB12 PO; +FOLI1TAB32 PO; +GABA-826 PO; +THIA100T67 PO
--- NOTE | 2020-06-11 00:23 | NUR ---
ED RN: BED BUG IDENTIFIED IN TRIAGE. PT TO DECON.
[2020-06-11] MEDS ORDERED: PROPARACAINE OPHTH 0.5%, 15ML ONE (01:14)
[2020-06-11] MEDS ORDERED: FLUORESCEIN OPHTHALMIC 1 MG STRIP ONE (01:14)
--- NOTE | 2020-06-11 02:13 | NUR ---
PT IN BED WITH NO SIGNS OR SYMPTOMS OF ACUTE DISTRESS NOTED RESPIRATIONS EVEN AND UNLABORED, RN AT BEDSIDE TO ATTEMPT VISUAL ACCUITY ASSESSMENT. PT VERY SLEEPY AND WILL NOT PARTICIPATE IN EXAM. PT SATTING WELL ON NC AT 2L/MIN, RESPIRATIONS EVEN AND UNLABORED. BED RAILS UP BILATERALLY CALL LIGHT WITHIN REACH.
--- NOTE | 2020-06-11 02:55 | NUR ---
pt provided new clothes and a taxi voucher for dc. pt verbalizes readiness to go home.
[2020-06-11 02:56] VITALS: BP 104/67
== END 2020-06-11 03:03 | disposition home or self-care (01) ==
LOC: ED 03:00
DX: H16.041 Marginal corneal ulcer, right eye (principal); Z87.891 Personal history of nicotine dependence
CPT/HCPCS: 99282

== ENCOUNTER 2020-06-13 21:56 | Emergency (ER) | payer MEDICARE, MEDICAID ==
[~2020-06-13] VITALS: Ht 193 cm; Wt 78.1 kg
--- NOTE | 2020-06-13 22:12 | NUR ---
PT STATED NEED TO HAVE A BM. WALKED PT TO RESTROOM.
[2020-06-13] MEDS ORDERED: FLUORESCEIN OPHTHALMIC 1 MG STRIP ONE (22:53)
[2020-06-13] MEDS ORDERED: TOBRAMYCIN OPHTH 0.3% 5ML OP SCH (23:30)
[2020-06-13 23:31] VITALS: BP 129/80
--- NOTE | 2020-06-13 23:34 | NUR ---
PT GIVNE ANTIBIOTIC AND AMBULATED TO DISCHARGE DESK. NO FURTHER QUESTIONS FROM THE PATIENT AT TIME OF DISCHARGE.
== END 2020-06-13 23:36 | disposition home or self-care (01) ==
LOC: ED 22:59
DX: H16.042 Marginal corneal ulcer, left eye (principal); H10.89 Other conjunctivitis; I10 Essential (primary) hypertension; J44.9 Chronic obstructive pulmonary disease, unspecified
CPT/HCPCS: 99283

== ENCOUNTER 2020-07-09 00:25 | Emergency (ER) | payer MEDICARE, MEDICAID ==
[~2020-07-09] VITALS: Ht 193 cm; Wt 79.0 kg
--- NOTE | 2020-07-09 01:31 | NUR ---
TO CT SCAN
[2020-07-09 02:20] VITALS: BP 131/86
--- NOTE | 2020-07-09 02:25 | NUR ---
X-RAY NOTIFIED ABOUT COMPLETING CXR. PT RESTING IN BED AND VSS. CALL REMOTE WITHIN REACH.
--- NOTE | 2020-07-09 05:23 | NUR ---
Patient AAOx4, GCS 15. Patient ambulatory with a steady gait. Discharge instructions given. All questions and concerns addressed. Belongings with patient.
== END 2020-07-09 05:24 | disposition home or self-care (01) ==
LOC: ED 00:58
DX: G89.11 Acute pain due to trauma (principal); M25.512 Pain in left shoulder; F10.220 Alcohol dependence with intoxication, uncomplicated; I10 Essential (primary) hypertension; J44.9 Chronic obstructive pulmonary disease, unspecified; G40.909 Epilepsy, unspecified, not intractable, without status epilepticus; F17.210 Nicotine dependence, cigarettes, uncomplicated; Z86.73 Personal history of transient ischemic attack (TIA), and cerebral infarction without residual deficits; Y90.0 Blood alcohol level of less than 20 mg/100 ml
CPT/HCPCS: 70450; 71045; 99284; 99406

== ENCOUNTER 2020-07-30 09:57 | Emergency (ER) | payer MEDICARE, MEDICAID ==
[~2020-07-30] VITALS: Ht 193 cm; Wt 79.5 kg
[2020-07-30 10:07] VITALS: BP 134/82
[2020-07-30] MEDS ORDERED: PROPARACAINE OPHTH 0.5%, 15ML EACHEYE ONE (10:30)
[2020-07-30] MEDS ORDERED: FLUORESCEIN OPHTHALMIC 1 MG STRIP EACHEYE ONE (10:30)
[2020-07-30] MEDS ORDERED: FLUORESCEIN OPHTHALMIC 1 MG STRIP ONE (11:48)
[2020-07-30] MEDS ORDERED: PROPARACAINE OPHTH 0.5%, 15ML ONE (11:48)
--- NOTE | 2020-07-30 11:50 | NUR ---
BATHROOM TILING PROFESSIONAL: PT TO ROOM FROM [facility]
--- NOTE | 2020-07-30 11:54 | NUR ---
PT WALKED BACK FROM TRIAGE WITH CHIEF COMPLAINT OF INTERMITTENT BILAT EYE REDDNESS, BLURRED VISION AND PAIN FOR ONE MONTH
--- NOTE | 2020-07-30 12:46 | NUR ---
JEREMY FITCH AT BEDSIDE FOR EVAL
--- NOTE | 2020-07-30 13:29 | NUR ---
pt resting in room.
[2020-07-30] MEDS ORDERED: MOXIFLOXACIN OPHTH O.5%, 3ML EACHEYE ONE (14:00)
--- NOTE | 2020-07-30 14:37 | NUR ---
DISCHARGE INSTRUCTIONS REVIEWED
== END 2020-07-30 14:59 | disposition home or self-care (01) ==
LOC: ED 10:34
DX: H16.042 Marginal corneal ulcer, left eye (principal); I10 Essential (primary) hypertension; J44.9 Chronic obstructive pulmonary disease, unspecified; G40.909 Epilepsy, unspecified, not intractable, without status epilepticus; F17.200 Nicotine dependence, unspecified, uncomplicated; Z86.73 Personal history of transient ischemic attack (TIA), and cerebral infarction without residual deficits
CPT/HCPCS: 99284

== ENCOUNTER 2020-09-13 00:35 | Emergency (ER) | payer MEDICARE, MEDICAID ==
[~2020-09-13] VITALS: Ht 193 cm; Wt 78.0 kg
--- NOTE | 2020-09-13 01:01 | NUR ---
AUXILIARY PLANT OPERATOR: PT WITH MIMI ON THE WALL, HAD A POCKET KNIFE OUT, CALLED SECURITY. SECURITY HAS THIS BELONGING WITH HIM
[2020-09-13 03:15] VITALS: BP 112/76
--- NOTE | 2020-09-13 04:08 | NUR ---
pt ambulatory to the dc desk with a steady gait. pt provided taxi voucher to [facility] per pt request.
== END 2020-09-13 04:11 | disposition home or self-care (01) ==
LOC: ED 01:45
DX: F10.220 Alcohol dependence with intoxication, uncomplicated (principal); Z72.9 Problem related to lifestyle, unspecified; F17.210 Nicotine dependence, cigarettes, uncomplicated; R00.0 Tachycardia, unspecified; J44.9 Chronic obstructive pulmonary disease, unspecified; I11.9 Hypertensive heart disease without heart failure; G40.909 Epilepsy, unspecified, not intractable, without status epilepticus; Y90.0 Blood alcohol level of less than 20 mg/100 ml; Z86.73 Personal history of transient ischemic attack (TIA), and cerebral infarction without residual deficits
CPT/HCPCS: 99283; 99406

== ENCOUNTER 2020-10-14 16:17 | Emergency (ER) | payer MEDICARE, MEDICAID ==
[~2020-10-14] VITALS: Ht 193 cm; Wt 77.4 kg
[2020-10-14] MEDS ORDERED: ALBUTEROL/IPRATROPIUM 2.5MG/0.5MG, 3 ML ONE ×2 (16:46→17:07)
[2020-10-14] MEDS ORDERED: COMBIVENT INH PRN (17:00)
[2020-10-14] MEDS ORDERED: ALBUTEROL/IPRATROPIUM 2.5MG/0.5MG, 3 ML NPPB ONE (17:00)
[2020-10-14 17:24] LABS: ANION GAP 10 mmol/L (5-15); CALCIUM 8.7 mg/dL (8.5-10.1); CHLORIDE 105 mmol/L (98-107)
[2020-10-14 17:28] LABS: TROPONIN I < 0.015 ng/mL (0.000-0.045)
--- NOTE | 2020-10-14 17:33 | NUR ---
duoneb in prog, cxr shows pna vs mass. pt tbadm. as
[2020-10-14 17:40] LABS: MEAN CORPUSCULAR HEMOGLOBIN 35.8 pg (27.5-34.5); MEAN CORPUSCULAR HGB CONC 34.3 g/dL (33.2-36.2); MEAN PLATELET VOLUME 10.5 fL (7.4-10.4); RED BLOOD COUNT 4.34 x10^6/uL (4.38-5.82); RED CELL DISTRIBUTION WIDTH 13.9 % (9.4-14.8)
[2020-10-14 17:48] LABS: PLATELET COUNT 47 x10^3/uL (130-400)
--- NOTE | 2020-10-14 17:53 | NUR ---
PLATELETS 47. PIV EST. TO CT.
[2020-10-14] MEDS ORDERED: SODIUM CHLORIDE FLUSH 10ML SYR IVF ONE (18:00)
[2020-10-14] MEDS ORDERED: OMNIPAQUE 350 MG/ML, 100ML BOTTLE ONE (18:07)
[2020-10-14 18:08] LABS: BASOS#(MANUAL) 0.06 x10^3/uL (0-0.1); BASOS% (MANUAL) 1 % (0-1); EOS#(MANUAL) 0.17 x10^3/uL (0.0-0.4); EOS% (MANUAL) 3 % (1-7); LYMPH#(MANUAL) 2.04 x10^3/uL (1-3.4); LYMPHS% (MANUAL) 37 % (22-44); MONOS#(MANUAL) 0.88 x10^3/uL (0.3-2.7); MONOS% (MANUAL) 16 % (2-9); REACTIVE LYMPHS # (MANUAL) 0.11 x10^3/uL (0-0); REACTIVE LYMPHS % (MANUAL) 2 % (0-0); SEG#(MANUAL) 2.26 x10^3/uL (1.8-6.8); SEGS% (MANUAL) 41 % (42-75)
[2020-10-14 18:10] LABS: <PLATELET ESTIMATE> DECREASED; <PLT MORPHOLOGY> NORMAL PLT MORPH
--- NOTE | 2020-10-14 18:49 | NUR ---
pt tbdc, trialing him on room air at moment. as
[2020-10-14] MEDS ORDERED: ONDANSETRON ODT 4 MG ONE (18:59)
[2020-10-14] MEDS ORDERED: ONDANSETRON ODT 4 MG PO ONE (19:00)
[2020-10-14] MEDS ORDERED: SODIUM CHLORIDE 0.9% 1,000ML IVBOLUS ONE (19:00)
--- NOTE | 2020-10-14 19:07 | NUR ---
walked pt. 94% ra after walking. pt c/o nausea and dizziness. provider ntoified. pt given zofran and ivf infusing, then dc. pt aware and agrees w poc. as
[2020-10-14 20:02] VITALS: BP 136/84
[2020-11-07] MEDS ORDERED: FOLI1TAB32 PO (11:55)
[2020-11-07] MEDS ORDERED: AZIT500T10 PO (11:55)
[2020-11-07] MEDS ORDERED: THIA100T67 PO (11:55)
[2020-11-07] MEDS ORDERED: CEFD300C37 PO (11:55)
[2020-11-07] MEDS ORDERED: IPRA4AER INH (11:55)
[2020-11-07] MEDS ORDERED: MULT-482 PO (11:55)
[2020-11-07] MEDS ORDERED: PRED5TAB PO (11:55)
== END 2020-10-14 20:02 | disposition home or self-care (01) ==
LOC: ED 16:39 → UNDOADMIN 17:11 → EDIP 17:11 → ED 20:02
DX: J44.1 Chronic obstructive pulmonary disease with (acute) exacerbation (principal); Z20.822 Contact with and (suspected) exposure to COVID-19; I10 Essential (primary) hypertension; G40.909 Epilepsy, unspecified, not intractable, without status epilepticus; Z87.891 Personal history of nicotine dependence
CPT/HCPCS: 36415; 71045; 71275; 80048; 82040; 84484; 85025; 93005; 94640; 96360; 99285; J7030; Q0162; Q9967; U0003; U0005

== ENCOUNTER 2020-10-15 20:25 | Emergency (ER) | payer MEDICARE, MEDICAID ==
[~2020-10-15] VITALS: Ht 193 cm; Wt 77.7 kg
[2020-10-15 20:27] VITALS: BP 122/86
--- NOTE | 2020-10-15 23:11 | NUR ---
PATIENT NOT IN THE LOBBY. ELOPED.
== END 2020-10-15 23:14 | disposition left against medical advice (07) ==
LOC: ED 23:11
DX: R06.00 Dyspnea, unspecified (principal); Z59.0 Homelessness
CPT/HCPCS: 71045; 99283

== ENCOUNTER 2020-10-19 20:17 | Observation (INO) | payer MEDICAID, MEDICARE ==
[~2020-10-19] VITALS: Ht 193 cm; Wt 81.0 kg
--- NOTE | 2020-10-19 20:24 | NUR ---
REport received from [facility] staff and care assumed. Pt changed into gown and 12 lead EKG completed. Pt on monitor and O2 at 2L/min NC applied for low RA sats of 89% in the field.
[2020-10-19] MEDS ORDERED: ALBUTEROL/IPRATROPIUM 2.5MG/0.5MG, 3 ML ONE (20:57)
[2020-10-19] MEDS ORDERED: DEXAMETHASONE 4 MG TABLET ONE (20:57)
--- NOTE | 2020-10-19 20:59 | NUR ---
Awaiting RT for NPPB tx and report given to on-coming RN with care transferred. WILD Anand aware of med order for Decadron.
[2020-10-19] MEDS ORDERED: ALBUTEROL/IPRATROPIUM 2.5MG/0.5MG, 3 ML NPPB ONE (21:00)
[2020-10-19] MEDS ORDERED: DEXAMETHASONE 4 MG TABLET PO ONE (21:00)
--- NOTE | 2020-10-19 21:00 | NUR ---
FIRST ENCOUNTER WITH PATIENT. PATIENT UPDATED ON PLAN OF CARE. NO NOTED ADDITIONAL NEEDS AT THIS TIME. VSS. WILL CONTINUE TO MONITOR.
--- NOTE | 2020-10-19 21:10 | NUR ---
LAB AT BEDSIDE PERFORMING BLOOD DRAW
[2020-10-19 21:16] LABS: MEAN CORPUSCULAR HEMOGLOBIN 35.6 pg (27.5-34.5); RED BLOOD COUNT 4.24 x10^6/uL (4.38-5.82); RED CELL DISTRIBUTION WIDTH 13.6 % (9.4-14.8)
[2020-10-19 21:25] LABS: ALBUMIN 3.9 g/dL (3.4-5.0); ANION GAP 6 mmol/L (5-15); CALCIUM 8.1 mg/dL (8.5-10.1); CHLORIDE 103 mmol/L (98-107)
[2020-10-19 21:33] LABS: ALANINE AMINOTRANSFERASE 128 U/L (12-78); ALKALINE PHOSPHATASE 119 U/L (45-117); BILIRUBIN,TOTAL 0.7 mg/dL (0.2-1.0); CREATININE 0.81 mg/dL (0.7-1.3)
[2020-10-19 21:38] LABS: PLATELET COUNT 47 x10^3/uL (130-400)
[2020-10-19 21:45] LABS: BASOS#(MANUAL) 0.05 x10^3/uL (0-0.1); BASOS% (MANUAL) 1 % (0-1); EOS#(MANUAL) 0.05 x10^3/uL (0.0-0.4); EOS% (MANUAL) 1 % (1-7); LYMPH#(MANUAL) 1.46 x10^3/uL (1-3.4); LYMPHS% (MANUAL) 28 % (22-44); MONOS#(MANUAL) 0.94 x10^3/uL (0.3-2.7); MONOS% (MANUAL) 18 % (2-9); REACTIVE LYMPHS # (MANUAL) 0.26 x10^3/uL (0-0); REACTIVE LYMPHS % (MANUAL) 5 % (0-0); SEG#(MANUAL) 2.44 x10^3/uL (1.8-6.8); SEGS% (MANUAL) 47 % (42-75)
[2020-10-19 21:46] LABS: <PLATELET ESTIMATE> DECREASED; LARGE PLATELETS 1+
--- NOTE | 2020-10-19 22:00 | NUR ---
PATIENT RESTING IN BED, NO NOTED NEEDS AT THIS TIME. WILL CONTINUE TO MONITOR.
--- NOTE | 2020-10-19 23:00 | NUR ---
PATIENT RESTING IN BED, NO NOTED NEEDS AT THIS TIME. WILL CONTINUE TO MONITOR.
--- NOTE | 2020-10-20 00:34 | NUR ---
PATIENT RESTING IN BED, NO NOTED NEEDS AT THIS TIME. WILL CONTINUE TO MONITOR.
--- NOTE | 2020-10-20 01:40 | NUR ---
PATIENT AWOKEN, ASKED FOR FOOD. FOOD GIVEN. VSS. WILL CONTINUE TO MONITOR.
--- NOTE | 2020-10-20 02:00 | NUR ---
PATIENT RESTING IN BED, NO NOTED NEEDS AT THIS TIME. WILL CONTINUE TO MONITOR.
--- NOTE | 2020-10-20 03:36 | NUR ---
PATIENT RESTING IN BED, NO NOTED NEEDS AT THIS TIME. WILL CONTINUE TO MONITOR.
[2020-10-20 04:22] VITALS: BP 125/74
--- NOTE | 2020-10-20 04:24 | NUR ---
PATIENT CLEARED FOR DISCHARGE ABLE TO AMBULATE WITHOUT COMPLICATIONS.
== END 2020-10-20 04:39 | disposition home or self-care (01) ==
LOC: ED 21:10 → EDIP 22:50
PROVIDERS: ADMIT Emergency Medicine; ATTEND Emergency Medicine
DX: G62.1 Alcoholic polyneuropathy (principal); F10.220 Alcohol dependence with intoxication, uncomplicated; I10 Essential (primary) hypertension; J44.9 Chronic obstructive pulmonary disease, unspecified; D69.6 Thrombocytopenia, unspecified; Z86.73 Personal history of transient ischemic attack (TIA), and cerebral infarction without residual deficits; Z79.899 Other long term (current) drug therapy
CPT/HCPCS: 36415; 70450; 80053; 80320; 85025; 93005; 99285; G0378; G0480

== ENCOUNTER 2020-10-31 00:15 | Emergency (ER) | payer MEDICAID ==
[~2020-10-31] VITALS: Ht 193 cm; Wt 76.9 kg
--- NOTE | 2020-10-31 00:25 | NUR ---
EKG DONE IN TRIAGE.
[2020-10-31] MEDS ORDERED: ALBUTEROL/IPRATROPIUM 2.5MG/0.5MG, 3 ML NPPB ONE (01:30)
[2020-10-31] MEDS ORDERED: ALBUTEROL/IPRATROPIUM 2.5MG/0.5MG, 3 ML ONE (02:13)
[2020-10-31 03:51] VITALS: BP 124/87
== END 2020-10-31 04:02 | disposition home or self-care (01) ==
LOC: ED 04:00
DX: J44.1 Chronic obstructive pulmonary disease with (acute) exacerbation (principal); I10 Essential (primary) hypertension; Z86.73 Personal history of transient ischemic attack (TIA), and cerebral infarction without residual deficits; Z87.891 Personal history of nicotine dependence; Z86.19 Personal history of other infectious and parasitic diseases
CPT/HCPCS: 71045; 93005; 94640; 99283; J7512

== ENCOUNTER 2020-11-24 16:38 | Emergency (ER) | payer MEDICARE, MEDICAID ==
[~2020-11-24] VITALS: Ht 193 cm; Wt 73.0 kg
[~2020-11-24 16:38] MED LIST changes: +AZIT500T10 PO; +CEFD300C37 PO; +IPRA4AER INH; +MULT-482 PO; +PRED5TAB PO
[2020-11-24 18:40] VITALS: BP 102/70
== END 2020-11-24 18:44 | disposition home or self-care (01) ==
LOC: ED 16:48
DX: F10.120 Alcohol abuse with intoxication, uncomplicated (principal); I10 Essential (primary) hypertension; G40.909 Epilepsy, unspecified, not intractable, without status epilepticus; J44.9 Chronic obstructive pulmonary disease, unspecified; F17.200 Nicotine dependence, unspecified, uncomplicated; Z86.73 Personal history of transient ischemic attack (TIA), and cerebral infarction without residual deficits; Y90.0 Blood alcohol level of less than 20 mg/100 ml
CPT/HCPCS: 99283

== ENCOUNTER 2020-12-01 01:07 | Emergency (ER) | payer MEDICARE, MEDICAID ==
[~2020-12-01] VITALS: Ht 193 cm; Wt 72.0 kg
--- NOTE | 2020-12-01 01:55 | NUR ---
PT C/O OF LEFT KNEE PAIN FROM FALLING OFF THE CURB PT DENIES HITTING HEAD OR LOC. ATTACHED TO MONITORS. VSS. NADN.BED IN LOW RAILS ENGAGED, CALL LIGHT ON LAP. PT KNEE APPEARS SWOLLEN
--- NOTE | 2020-12-01 02:17 | NUR ---
PT GIVEN HEATED BLANKETS, AND NON-SLIP SOCKS
--- NOTE | 2020-12-01 02:21 | NUR ---
PT OFF UNIT AT XRAY
[2020-12-01 03:19] VITALS: BP 118/86
--- NOTE | 2020-12-01 03:32 | NUR ---
Patient/Caregiver given discharge instructions and they have confirmed that they understand the instructions. Patient ambulatory with steady gait. NAD, all questions answered appropriately, denies additional needs at this time. No personal belongings left in room after discharge.
== END 2020-12-01 03:33 | disposition home or self-care (01) ==
LOC: ED 01:15
DX: G89.11 Acute pain due to trauma (principal); M25.562 Pain in left knee; M54.2 Cervicalgia; Z72.9 Problem related to lifestyle, unspecified; I10 Essential (primary) hypertension; J44.9 Chronic obstructive pulmonary disease, unspecified; F17.200 Nicotine dependence, unspecified, uncomplicated; Z86.73 Personal history of transient ischemic attack (TIA), and cerebral infarction without residual deficits; W01.0XXA Fall on same level from slipping, tripping and stumbling without subsequent striking against object, initial encounter; Y93.89 Activity, other specified; Y92.89 Other specified places as the place of occurrence of the external cause; Y99.8 Other external cause status
CPT/HCPCS: 99283